=== PATIENT | male | born 1985 | race Caucasian/White ===

== ENCOUNTER 2017-01-04 17:39 | Emergency (ER) | payer BC, OTHER ==
[2017-01-04 17:44] VITALS: BP 126/83; TEMP 98.2
[2017-01-04 17:47] VITALS: PULSE 82
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
[2017-01-04 18:49] VITALS: RESP 16; O2SAT 99
== END 2017-01-04 18:49 | disposition home or self-care (01) ==
LOC: ED 17:39
DX: S13.9XXA Sprain of joints and ligaments of unspecified parts of neck, initial encounter (principal); S39.012A Strain of muscle, fascia and tendon of lower back, initial encounter; V49.9XXA Car occupant (driver) (passenger) injured in unspecified traffic accident, initial encounter